=== PATIENT | male | born 1945 | race Caucasian/White ===

== ENCOUNTER 2021-05-11 08:43 | Outpatient (CLI) | payer OTHER | END 2021-05-11 08:44 | disposition home or self-care (01) | LOC: SONOGRAMA 08:43 | DX: N28.1 Cyst of kidney, acquired (principal); I70.0 Atherosclerosis of aorta; I11.9 Hypertensive heart disease without heart failure ==

== ENCOUNTER 2024-04-03 11:46 | Outpatient (CLI) | payer OTHER | END 2024-04-03 11:52 | disposition home or self-care (01) | LOC: RAD 11:46 | DX: I11.9 Hypertensive heart disease without heart failure (principal) ==